=== PATIENT | female | born 1950 | race Caucasian/White ===

== ENCOUNTER 2017-01-11 18:49 | Inpatient (IN) | payer OTHER ==
[~2017-01-11] VITALS: Ht 152.4 cm; Wt 75.8 kg
--- NOTE | ~2017-01-11 | CON ---
[place], [place] REPORT OF CONSULTATION NAME: HEMA DOMINGUEZ UNIT #: [id number] ROOM: 420 DOCTOR: GISELA HURT MD BIRTHDATE: [birth year] DOS: 01/12/2017 GASTROENDOSCOPY REPORT. HISTORY OF PRESENT ILLNESS: This is a 66-year-old patient who presented with multiple medical issues among which in gastrointestinal system; dysphagia, ____ fullness, and difficulty with swallowing apparently solid food as well as bloating, and abdominal pain. The patient was admitted through Emergency Room. A panel of blood work was done. INR was 0.9. Hemoglobin A1c 7.3. Her blood glucose was slightly out of control, 230 plus. Creatinine 1.9. Lactic acid was normal. C-reactive protein normal. Troponin normal. Urinalysis unremarkable. Acute abdominal series, no acute cardiopulmonary pathology seen. CT scan of the abdomen and pelvis, no acute pathology except diverticulosis. White blood cell was 9, H and H of 15 and 43. CBC differential within normal limits again. PAST MEDICAL HISTORY: Associated with coronary artery disease, history of hypertension, diabetes mellitus, hyperlipidemia, trigeminal neuralgia, and COPD. PAST SURGICAL HISTORY: , cardiac catheterization, coronary stenting x 2, cholecystectomy, appendectomy, multiple minor operations, and podiatric surgeries. FAMILY HISTORY: Aunt with colonic carcinoma. SOCIAL HISTORY: She stopped smoking 15 years ago and nonalcohol consumer. ALLERGIES: CODEINE. REVIEW OF SYSTEMS: HEENT: Denies double vision, blurred vision. RESPIRATORY: Denies acute shortness of breath. CARDIOVASCULAR: Denies acute chest pain. DIGESTIVE SYSTEM: Dysphagia to solid food and abdominal pain, nonspecific. NEUROMUSCULOSKELETAL: Benign history. PHYSICAL EXAMINATION: VITAL SIGNS: Obese patient. HEENT: Head normocephalic, nontraumatic. Mouth and buccal mucosa benign. NECK: Supple, no thyromegaly, no cervical lymphadenopathy. Mouth free of aphthae, ulcer or thrush. She is edentulous. NECK: No thyromegaly. CHEST: Symmetric anatomy, equal expansion. Decreased air entry bilaterally on inhalation. No wheeze. HEART: Normal sinus rhythm, no gallop, no murmur. ABDOMEN: Obese, large, soft. No hepato-organomegaly. Bowel sounds present. No pulsatile mass. There is no tenderness acutely. She gestures as a mild tenderness. EXTREMITIES: There is no evidence of cyanosis, no pedal edema, no pulse. No heat to touch. NEUROLOGIC: Alert, oriented to time, place, person. Sensory, motor intact. [place], [place] REPORT OF CONSULTATION NAME: HEMA DOMINGUEZ UNIT #: [id number] ROOM: 420 DOCTOR: GISELA HURT MD BIRTHDATE: [birth year] Cranial nerves 2-12 intact. IMPRESSION: Diverticulosis for abdominal pain off and on, nonspecific etiology. Apparently, she has had an attempted colonoscopy 3 years ago, apparently incomplete colonoscopy; however, as far as upper GI is concerned, dysphagia, ruling out the etiology of dysphagia, most likely is going to be anatomical ruling out hiatal hernia least likely esophageal obstructive pathology. OTHER ADJUNCTIVE DIAGNOSES: Hypertension, hyperlipidemia, diabetes mellitus, and coronary artery disease status post two stent. PLAN AND DISCUSSION: Endoscopic evaluation of upper GI tract along with colonoscopy, Thursday. She requires perhaps 2 days of prep. This is going to be organized. GISELA HURT MD CM:CONSTR:REPORT OF CONSULTATION 1323 01/13/17 0120 interface
--- NOTE | ~2017-01-11 | O ---
[place], [place] OPERATIVE NOTE NAME: HEMA DOMINGUEZ UNIT #: [id number] ROOM: 420 DOCTOR: BLU DONALDSONGISELA BIRTHDATE: [birth year] DOS: 01/14/2017 INDICATIONS: A 66-year-old patient who presented with multiple medical issues among which is gastrointestinal systems, fullness, solid food dysphagia. No active bleeding however. ____ 9 and 15. PROCEDURE: Today's part of investigation is colonoscopy and endoscopy. PREMEDICATION: Versed and Diprivan. SCOPE: Olympus folding colonoscope 10L video. REPORT: After putting the patient in the left lateral position and after application of lubricant to the scope, the scope was introduced. Thereafter, under direct visualization, I advanced through the length of colon without difficulty. Evidence of diverticulosis, left side colon was appreciated. The polypoid flat lesion at the hepatic flexure as much as possible from mucosa was shaved off with a snare polypectomy and the site was tattooed. The scope was negotiated to mid ascending colon. Another polypoid lesion with snare was polypectomized. Site was tattooed again. Base of the cecum explored, appendiceal orifice identified, and ileocecal valve was defined. Scope was gradually withdrawn from ascending, transverse, and descending colon. The patient extubated, tolerated procedure well. IMPRESSION: Two colonic polyps, one in mid ascending, one in the hepatic flexure, status post snare polypectomy, status post polyp tattoo marking with concerns about the pathology, particularly about the hepatic flexure. PLAN AND DISCUSSION: Diverticulosis has been noticed. We are going to ask the patient not to be on anticoagulant. Regular diet is going to be restarted. We are going to proceed with panendoscopy. INDICATIONS: The patient has presented with dysphagia, epigastric distress, anemia, undergoing investigation. PROCEDURE: Today's procedure part of investigation is panendoscopy plus biopsy plus balloon dilation of esophagus. PREMEDICATION: Versed and Diprivan. SCOPE: Olympus forward-viewing gastroscope Q10 video. REPORT: After putting the patient in the left lateral position and after application of lubricant to the scope, the scope was introduced. Thereafter, under direct visualization, I advanced through the length of the esophagus without difficulty. Gastric pouch was entered. Evidence of gastritis was seen. Duodenal bulb, second and third part within normal limits. Antral biopsy obtained for H. pylori was followed by a small hiatal hernia was noticed. At this stage, a balloon was introduced into the gastric pouch to size 20 and orally extracted. Highest resistance in lower and upper esophagus was noticed. [place], [place] OPERATIVE NOTE NAME: HEMA DOMINGUEZ UNIT #: [id number] ROOM: 420 DOCTOR: GISELA HURT MD BIRTHDATE: [birth year] The patient tolerated procedure well. IMPRESSION: Small hiatal hernia, benign esophageal stricture, status post balloon dilation to size 20, mild gastritis. PLAN AND DISCUSSION: Omeprazole 20 mg 1 every day would suffice management of her dyspepsia. We will have to wait to see if she can tolerate regular diet. No anticoagulation for the next 3 days. Supportive management, clinical reassessment. GISELA HURT MD CM:OPRECORD:OPERATIVE NOTE 1139 1200 GISELA HURT MD 01/14/17 1200 interface
[~2017-01-11 18:49] MED LIST: ADVAIR 250/501 EA INH; ALENDRONATE SOD70 M1 PO; ASPIRIN325 MG PO; ATORVASTATIN CA40 M1 PO; CARBAMAZEPINE200 M2 PO; DIAZEPAM5 MG PO; DOXEPIN50 MG PO; DOXYCYCLINE HY100 M5 PO; ENALAPRIL MALEA10 MG PO; GLUCOPHAGE500 M1 PO; HYDR25T PO; KEFLEX 500 MG E2 CAP PO; MACROBID100 M1 PO; MEDROL DOSEPAK4 MG PO; Nystatin Cream15 GM T; PERCOCET 325 MG1 TA2 PO; PERCOCET 325 MG1 TAB PO; ZITHROMAX250 MG PO; ZOFRAN ODT4 MG SL; [UNRECOGNIZED DRUG - SUPPLY]
[2017-01-11 19:03] VITALS: BP 112/72
[2017-01-11 19:21] VITALS: BP 144/82
[2017-01-11 19:43] LABS: ACT PARTIAL THROMBO TIME 20.3 SECONDS (20.8-31.5); INTERNATIONAL NORM RATIO 0.9 (2.0-3.5)
[2017-01-11 19:49] LABS: ALBUMIN 3.7 gm/dl (3.1-4.5); ALKALINE PHOSPHATASE 90 U/L (45-117); BUN 23 mg/dl (7-24); CHLORIDE 103 mmol/L (98-107); CREATININE 1.09 mg/dL (0.55-1.02); LIPASE 128 U/L (73-393); POTASSIUM 4.3 mmol/L (3.5-5.1); SGOT/AST 16 IU/L (3-35); SGPT/ALT 33 U/L (12-78); SODIUM 138 mmol/L (136-145); TOTAL PROTEIN 7.1 gm/dL (6.4-8.2)
[2017-01-11 21:00] VITALS: BP 117/78
[2017-01-11 21:09] LABS: BILIRUBIN NEGATIVE (NEGATIVE); BLOOD NEGATIVE (NEGATIVE); CLARITY CLEAR (CLEAR); COLOR YELLOW (YELLOW); GLUCOSE 1+ (NEGATIVE); KETONE NEGATIVE (NEGATIVE); LEUKO ESTERASE NEGATIVE (NEGATIVE); NITRITE NEGATIVE (NEGATIVE); SPECIFIC GRAVITY 1.025 (1.005-1.030); UROBILINOGEN 0.2 E.U./dl (0.2-1.0)
[2017-01-11 21:22] LABS: HYALINE CAST 0-2; WBC 0-2 wbc/hpf (0-5)
[2017-01-11 22:56] VITALS: BP 120/69
[2017-01-11 23:46] VITALS: BP 116/66
[2017-01-11 23:47] LABS: BASO # 0.1 10*3/uL (0.0-0.1); BASO % 0.9 % (0.0-1.0); EOS # 0.1 10*3/uL (0.0-0.4); EOS % 1.3 % (1.0-4.0); HEMATOCRIT 43.8 % (37.0-47.0); HEMOGLOBIN 15.1 g/dl (12.0-16.0); LYMPH # 1.8 10*3/uL (1.3-4.4); LYMPH % 19.2 % (27.0-41.0); MEAN CELL VOLUME 97.3 fl (81.0-99.0); MEAN CORPUSCULAR HGB 33.6 pg (27.0-31.0); MEAN CORPUSCULAR HGB CONC 34.5 g/dl (33.0-37.0); MEAN PLATELET VOLUME 10.9 fl (9.6-12.3); MONO # 0.6 10*3/uL (0.1-1.0); NEUT # 6.7 10*3/uL (2.3-7.9); NEUT % 72.3 % (47.0-73.0); PLATELET COUNT AUTOMATED 314 10*3/uL (130-400); RED CELL DISTRI WIDTH 12.5 % (0-14.5); WHITE BLOOD COUNT 9.2 10*3/uL (4.8-10.8)
--- NOTE | 2017-01-12 00:04 | NUR ---
VERBAL NOTE GIVEN TO HAND LITER OF FLUIDS ON PT
--- NOTE | 2017-01-12 00:16 | NUR ---
REPORT FROM NANNY CAREGIVER.
[2017-01-12 00:30] VITALS: BP 129/68
--- NOTE | 2017-01-12 00:30 | NUR ---
A 66, admitted to , under the services of RAYMOND Lazaro DO with a diagnosis of ABDOMINAL PAIN. Chief complaint is ABD PAIN. Patient arrived via stretcher from ER. Monitor applied. Initial assessment completed. Vital signs taken and recorded. RAYMOND LAZARO DO notified of admission to the unit. Orders received. See assessment for past medical history, medications and allergies. Patient and/or family oriented to unit. [facility] visitation policy reviewed. Clothing/patient valuable form completed. DARIANA BOLANOS
[2017-01-12 00:45] VITALS: BP 129/68
[2017-01-12] MEDS ORDERED: PERCOCET 10-321 EACH PO (00:58)
[2017-01-12] MEDS ORDERED: SUDOGEST30 MG PO (01:00)
[2017-01-12] MEDS ORDERED: METFORMIN1000 MG PO (01:11)
[2017-01-12] MEDS ORDERED: VITAMIN D-32000 UNIT PO (01:14)
[2017-01-12] MEDS ORDERED: ROPINIROLE HYDRO1 MG PO (01:15)
--- NOTE | 2017-01-12 01:16 | NUR ---
MED REC UP TO DATE WITH LIST FROM PATIENT. LIST PUT ON CHART
--- NOTE | 2017-01-12 01:23 | NUR ---
DR DIAZ AWARE OF PATIENT'S MED REC BEING UP TO DATE AND PATIENT C/O PAIN. STATES HE WILL PUT ORDERS IN.
--- NOTE | 2017-01-12 03:55 | NUR ---
PATIENT MEDICATED WITH PRN DILAUDID FOR C/O ABD PAIN RATED 8/10 ON A 0/10 PAIN SCALE
[2017-01-12 06:57] LABS: BASO % 0.8 % (0.0-1.0); EOS # 0.2 10*3/uL (0.0-0.4); EOS % 3.5 % (1.0-4.0); HEMATOCRIT 38.2 % (37.0-47.0); LYMPH # 1.9 10*3/uL (1.3-4.4); LYMPH % 36.5 % (27.0-41.0); MEAN CELL VOLUME 97.9 fl (81.0-99.0); MEAN CORPUSCULAR HGB 32.6 pg (27.0-31.0); MEAN CORPUSCULAR HGB CONC 33.2 g/dl (33.0-37.0); MEAN PLATELET VOLUME 10.6 fl (9.6-12.3); MONO # 0.3 10*3/uL (0.1-1.0); NEUT # 2.8 10*3/uL (2.3-7.9); NEUT % 52.8 % (47.0-73.0); PLATELET COUNT AUTOMATED 253 10*3/uL (130-400); RED CELL DISTRI WIDTH 12.5 % (0-14.5); WHITE BLOOD COUNT 5.2 10*3/uL (4.8-10.8)
[2017-01-12 06:59] LABS: HEMOGLOBIN 12.7 g/dl (12.0-16.0)
[2017-01-12 07:18] LABS: BUN 17 mg/dl (7-24); CHLORIDE 108 mmol/L (98-107); CHOLESTEROL 154 mg/dL (<200); CREATININE 0.57 mg/dL (0.55-1.02); HDL CHOLESTEROL 50 mg/dl (40-60); LDL CHOLESTEROL 71 mg/dL (9-159); POTASSIUM 3.9 mmol/L (3.5-5.1); SODIUM 141 mmol/L (136-145); TRIGLYCERIDES 167 mg/dl (<150); VLDL CHOLESTEROL 33 mg/dL (6-40)
[2017-01-12 07:27] LABS: ACT PARTIAL THROMBO TIME 23.5 SECONDS (20.8-31.5)
--- NOTE | 2017-01-12 07:42 | NUR ---
LAB CALLED WITH CRITICAL LEVEL OF CALCIUM OF 6.9. DR DIAZ NOTIFIED.
[2017-01-12 07:56] LABS: VITAMIN D, 25-HYDROXY 41.6 ng/mL (30-100)
[2017-01-12 08:00] VITALS: BP 112/68
--- NOTE | 2017-01-12 08:01 | NUR ---
MEDICATED IV DILAUDID FOR C/O ABDOMINAL PAIN. RATES PAIN 8/10. WILL CONTINUE TO MONITOR.
--- NOTE | 2017-01-12 09:00 | NUR ---
STATES DILAUDID EFFECTIVE.
--- NOTE | 2017-01-12 11:17 | NUR ---
Received SNF consultation for this patient. In to discuss with her, yogesh Hayward at bedside. Patient very adamant about no SNF, patients daughter stated she is not working right now because she doesn't work in the winter and she cares for her. Asked if they would like VNA and both stated not right now. Daughter and patient stated she will be fine going home, refusing SNF and VNA.
--- NOTE | 2017-01-12 11:51 | NUR ---
PHYSICAL THERAPY PAtient evaluated on 4, full evaluation to follow. PAtient (I) with mobility and gait. D/c PT after evaluation- patient agrees. PAtient is low complexity via chart review, tests and evaluation: 55029. Thank you for this referral. Xiomara Nieves,PT
--- NOTE | 2017-01-12 11:53 | NUR ---
MEDICATED IV DILAUDID FOR C/O ABDOMINAL PAIN. RATES PAIN 8/10.
[2017-01-12 12:00] VITALS: BP 120/76
--- NOTE | 2017-01-12 12:05 | NUR ---
DR HURT NOTIFED OF CONSULT. STATES HE WILL SEE PT.
--- NOTE | 2017-01-12 12:07 | NUR ---
Occupational Therapy evaluation completed this date on 4 with full eval to follow. Precautions include right hearing aide, [place], low complexity level 67747. Recommend use of ww in the hospital especially while LLE aircast not in place and return home with daughter to assist as needed. No further OT indicated at this time. Patient in agreement with this plan. Thank you for this referral. Carrie Fiedls OTR/l
--- NOTE | 2017-01-12 12:31 | NUR ---
SPEECH PATHOLOGY Orders received and chart review completed. Patient is currently NPO for medical procedure today therefore full clinical assessment was unable to be completed. Clinician spoke with patient who reported that she has been experiencing a feeling of food sticking in her sternal area. She reported that at time she throws it back up, then chokes, but stated that she does not seem to have any difficulty when initially swallowing the food. Dr. Rajan has been consulted and is following this patient. Will check back at a later time in order to complete assessment to r/o aspiration and provide diet recommendations. Thank you for this referral. NEY WALLACE MSCCC-BEE RAISER
--- NOTE | 2017-01-12 13:00 | NUR ---
NO FURTHER C/O OFFERED.
--- NOTE | 2017-01-12 15:50 | NUR ---
MEDICATED IV DILAUDID FOR C/O PAIN. RATES PAIN 8/10
[2017-01-12 16:00] VITALS: BP 118/76
--- NOTE | 2017-01-12 16:58 | NUR ---
PT C/O BEING EXCORIATED UNDER BREAST AND ABDOMINAL FOLDS. AREAS RED, NO OPEN AREAS. DR SEE NOTIFIED, STATES SHE WILL PUT ORDERS IN.
--- NOTE | 2017-01-12 18:20 | NUR ---
NO FURTHER C/O OFFERED.
[2017-01-12 20:00] VITALS: BP 113/67
--- NOTE | 2017-01-12 20:11 | NUR ---
DR MICHELLE AWARE OF PATIENT REQUESTING NYSTATIN CREAM BE CHANGED TO POWDER
--- NOTE | 2017-01-12 21:20 | NUR ---
PATIENT MEDICATED WITH PRN DILAUDID FOR C/O ABD PAIN RATED 8/10 ON A 0/10 PAIN SCALE
--- NOTE | 2017-01-12 22:08 | NUR ---
MEDICATED EFFECTIVE PER PATIENT
[2017-01-13] VITALS: BP 121/62
--- NOTE | 2017-01-13 01:26 | NUR ---
24 HR chart check completed.
--- NOTE | 2017-01-13 03:59 | NUR ---
PATIENT RESTING IN BED WITH NO S/S OF DISTRESS. RESPS EASY AND REGULAR. BED IN LOWEST POSITION, CALL LIGHT IN REACH
[2017-01-13 06:44] LABS: EOS # 0.1 10*3/uL (0.0-0.4); EOS % 4.1 % (1.0-4.0); HEMATOCRIT 33.9 % (37.0-47.0); HEMOGLOBIN 11.3 g/dl (12.0-16.0); LYMPH % 35.6 % (27.0-41.0); MEAN CELL VOLUME 96.9 fl (81.0-99.0); MEAN CORPUSCULAR HGB 32.3 pg (27.0-31.0); MEAN CORPUSCULAR HGB CONC 33.3 g/dl (33.0-37.0); MEAN PLATELET VOLUME 10.5 fl (9.6-12.3); MONO # 0.2 10*3/uL (0.1-1.0); MONO % 5.8 % (3.0-9.0); NEUT # 1.6 10*3/uL (2.3-7.9); NEUT % 53.2 % (47.0-73.0); PLATELET COUNT AUTOMATED 193 10*3/uL (130-400); RED CELL DISTRI WIDTH 12.4 % (0-14.5); WHITE BLOOD COUNT 2.9 10*3/uL (4.8-10.8)
[2017-01-13 07:15] LABS: BUN 9 mg/dl (7-24); CHLORIDE 109 mmol/L (98-107); SODIUM 142 mmol/L (136-145)
--- NOTE | 2017-01-13 07:50 | NUR ---
DILAUDID GIVEN FOR C/O RT SIDE PIN. RATES 8/10 ON PAIN SCALE. WILL MONITOR.
--- NOTE | 2017-01-13 07:55 | NUR ---
DILUADID AND PT NOT SCANED AT LEONIE TIME. DILAUDID GIVEN TO PT AT 0750, AND SYRINGE PLACED IN STERICYLE. PHARMACY NOTIFIED.
[2017-01-13 08:00] VITALS: BP 128/72
--- NOTE | 2017-01-13 09:00 | NUR ---
DILAUDID EFFECTIVE PER PT.
--- NOTE | 2017-01-13 09:03 | NUR ---
SPEECH PATHOLOGY Patient was seen for a brief clinical swallowing evaluation due to dx of dysphagia, abdominal pain and choking. Patient is currently ordered a clear liquid diet as she is scheduled for upper GI and colonoscopy tomorrow. Patient reported that has been experiencing a feeling that solid foods are sticking in her sternal area, which she eventually has to bring back up. Patient stated that she felt she has no difficulty with swallowing. She was only able to be assessed with liquid, which she tolerated with no overt difficulty. Will monitor this patient after medical procedures are completed in order to assess when she is cleared for diet upgrade, in order to determine safety with highest level diet. Refer to report in [facility] for further information. Thank you for this referral. NEY WALLACE MSCCC-ASBESTOS COVERER
--- NOTE | 2017-01-13 09:25 | NUR ---
PATIENT WAS LAYING IN BED. RESTING QUIETLY WITH HER DAUGHTER BY HER SIDE. DENISE FOURNIER [facility]
[2017-01-13 12:00] VITALS: BP 130/72
--- NOTE | 2017-01-13 12:54 | NUR ---
DOCTOR IN TO VISIT, PT WILL BE NPO AFTER MIDNIGHT FOR COLONOSCOPY IN AM DENISE FOURNIER [facility]
--- NOTE | 2017-01-13 13:51 | NUR ---
PATIENT LYING IN BED. FAMILY VISITING WITH HER. DENISE FOURNIER DAYAN
[2017-01-13 16:00] VITALS: BP 134/94
[2017-01-13 20:00] VITALS: BP 139/88
--- NOTE | 2017-01-13 20:09 | NUR ---
1925 UP IN BR. FREQUENT BM'S FROM COLO PREP. IV FLUIDS CONT. ALERT AND PLEASANT. DILAUDID 1MG IV FOR C/O'S ABD PAIN. RATES PAIN A "10". WILL MONITOR. 2004 RELIEF OBTAINED FROM EARLIER PAIN MED. REMAINS IN BR.
--- NOTE | 2017-01-13 22:04 | NUR ---
UP TO BR FREQUENTLY. NO DISTRESS NOTED. CONDITION GUARDED.
[2017-01-14] VITALS (11 sets, daily range): BP systolic 114–148; BP diastolic 66–108
[2017-01-14 06:31] LABS: BASO # 0.1 10*3/uL (0.0-0.1); BASO % 1.2 % (0.0-1.0); EOS # 0.3 10*3/uL (0.0-0.4); EOS % 6.5 % (1.0-4.0); HEMATOCRIT 35.1 % (37.0-47.0); HEMOGLOBIN 11.9 g/dl (12.0-16.0); LYMPH # 1.3 10*3/uL (1.3-4.4); LYMPH % 31.3 % (27.0-41.0); MEAN CELL VOLUME 96.4 fl (81.0-99.0); MEAN CORPUSCULAR HGB 32.7 pg (27.0-31.0); MEAN CORPUSCULAR HGB CONC 33.9 g/dl (33.0-37.0); MEAN PLATELET VOLUME 9.7 fl (9.6-12.3); MONO # 0.3 10*3/uL (0.1-1.0); MONO % 7.2 % (3.0-9.0); NEUT # 2.2 10*3/uL (2.3-7.9); NEUT % 53.6 % (47.0-73.0); PLATELET COUNT AUTOMATED 194 10*3/uL (130-400); RED BLOOD COUNT 3.64 10*6/uL (4.10-5.10); RED CELL DISTRI WIDTH 12.4 % (0-14.5)
[2017-01-14 07:01] LABS: ALBUMIN 2.9 gm/dl (3.1-4.5); ALKALINE PHOSPHATASE 113 U/L (45-117); BUN 6 mg/dl (7-24); CHLORIDE 107 mmol/L (98-107); CREATININE 0.51 mg/dL (0.55-1.02); POTASSIUM 3.6 mmol/L (3.5-5.1); SGOT/AST 222 IU/L (3-35); SGPT/ALT 584 U/L (12-78); SODIUM 142 mmol/L (136-145); TOTAL PROTEIN 5.7 gm/dL (6.4-8.2)
--- NOTE | 2017-01-14 07:55 | NUR ---
PATIENT RESTING IN BED WITH DAUGHTER AT BEDSIDE. PATIENT REQUESTED PRN MEDICATION. 1 MG DILAUDID WAS GIVEN WILL REASSESS FOR EFFECTIVENESS. SEE SHIFT ASSESSMENT
--- NOTE | 2017-01-14 08:00 | NUR ---
BP ELEVATED AT 138/108 BUT PT IS CRYING AND UPSET ABOUT PROCEDURE AND ENEMA, PT STATES THAT SHE ALSO HAS A FANILY HISTORY OF COLON CANCER AND IS WORRIED ABOUT IT, SPENT TIME WITH PT AND ALLOWED HER TO RELAX, PT ALSO IN PAIN AT PRESENT AND WAS MEDICATED BY NURSE, NURSE SHIMA FOURNIER [facility]
--- NOTE | 2017-01-14 08:20 | NUR ---
BP RECHECKED AND WAS 148/88 AT THIS TIME MANUALLY, PT REMAINS UPSET BUT IS A LITTLE MORE RELAXED DENISE MELTONCC
--- NOTE | 2017-01-14 08:33 | NUR ---
PATIENT IS LYING COMFORTABLY IN BED, WAITNG TO GO DOWN FOR HER PROCEDURE. OLEGARIO CAMERON [facility]
--- NOTE | 2017-01-14 08:37 | NUR ---
TAP WATER ENEMA GIVEN UNTIL CLEAR, PT TOLERATED WELL DENISE TIRADONRCC
--- NOTE | 2017-01-14 08:50 | NUR ---
TO SURGERY FOR PROCEDURE ACCOMPANIED BY STUDENT AND OR STAFF DENISE MELTONCC
--- NOTE | 2017-01-14 12:34 | NUR ---
SPEECH PATHOLOGY Patient unavailable for treatment as she was out of room for surgery. Will attempt again at a later time. NEY WALLACE MSCCC-RATOPRINTER
--- NOTE | 2017-01-14 12:54 | NUR ---
BACK FROM SURGERY, CONDITION STABLE, NO CHANGE FROM AM ASSESSMENT, FAMILY AT THE BEDSIDE DENISE MONTES
--- NOTE | 2017-01-14 13:52 | NUR ---
UP TO BATHROOM, TOELRATED WELL DENISE FOURNIER SPNRCC
--- NOTE | 2017-01-14 14:52 | NUR ---
SPEECH PATHOLOGY Patient was seen for treatment this pm. She had returned from EGD/colonoscopy and reported that she underwent esophageal dilation as well. She is now ordered a soft diet and was observed with various soft items and thin liquids. Some encouragement was required as well as education as patient admitted feeling fearful that foods will stick. During meal she had no complaints and did not experience a feeling of globus with any food item. She tolerated foods and liquids well. Safe swallow strategies were implemented. As she is tolerating upgraded diet with no observed difficulties, it is recommended she remain on present diet. No follow up therapy is warranted at this time. Results and shai. were shared with patient and family members and they verbalized understanding. Thank you for this referral. NEY WALLACE MSCCC-PROGRAM HOST
--- NOTE | 2017-01-14 19:30 | NUR ---
IN TO SEE PT AT THIS TIME, ALERT AND PLEASANT. NO S/S OF DISTRESS. RESPIRATIONS EASY AND UNLABORED. ASSESSMENT COMPLETE, PT DENIES ANY PAIN UPON URINATION. LUNG SOUNDS DIMINISHED, ACTIVE BOWEL SOUNDS X 4 QUADRANTS. HEART RATE NSR PER CM. EXPLAINED PLAN OF CARE TO PT FOR THE SHIFT.
--- NOTE | 2017-01-14 22:00 | NUR ---
HS MEDICATION GIVEN TO PT AT THIS TIME. TAKEN WITH EASE. HS BLOOD SUGAR OBTAINED AND COVERAGE GIVEN PER ORDER. PT TOLERATED WELL. RESPIRATIONS EASY AND UNLABORED. NO S/S OF DISTRESS AT THIS TIME. PT REFUSES NYSTATIN CREAM AT THIS TIME AND STATES THAT SHE DOES NOT NEED IT ANYMORE.
[2017-01-15] VITALS: BP 118/65
--- NOTE | 2017-01-15 02:00 | NUR ---
IN TO CHECK ON PT AT THIS TIME, RESPIRATIONS EASY AND UNLABORED. IV FLUIDS RUNNING PER PHYSICIAN ORDER. IV SITE PATENT, DRESSING DRY AND IN TACT. NO ABNORAMLITIES NOTED.
[2017-01-15 05:55] LABS: HEMATOCRIT 32.2 % (37.0-47.0)
--- NOTE | 2017-01-15 06:00 | NUR ---
AM MEDICATIONS TAKEN WITH EASE. NO NEW ABNORMALITIES NOTED. RESPIRATIONS EASY AND UNLABORED. BLOOD SUGAR OBTAINED AND NO COVERAGE NEEDED PER SLIDING SCALE. PT REFUSES NYSTATIN CRAEM THIS MORNING AND STATES THAT SHE DOES NOT NEED IT ANYMORE. ATTEMPTS X 3 MADE, INEFFECTIVE.
[2017-01-15 08:00] VITALS: BP 128/88
--- NOTE | 2017-01-15 08:33 | NUR ---
PATIENT WAS SLEEPING QUIETLY IN BED. DAUGHTER SLEEPING NEXT TO HER AT TIME OF ASSESSMENT. PATIENT GOING TO GET CLEANED UP AFTER BREAKFAST. DENISE MONTES
--- NOTE | 2017-01-15 09:00 | NUR ---
case management visits with patient, patient will return home when medically stable and denies any home needs
--- NOTE | 2017-01-15 09:46 | NUR ---
MEDICATED 2 TYLENOL FOR C/O HEADACHE.
--- NOTE | 2017-01-15 10:05 | NUR ---
DOCTOR IN TO VISIT, IV FLUIDS D/C'D DENISE FOURNIER SPNRCC
--- NOTE | 2017-01-15 10:22 | NUR ---
ONE TIME DOSE OF NORCO GIVEN FOR C/O HEADACHE.
[2017-01-15] MEDS ORDERED: GOOD NEIGHBOR L10 MG PO (10:31)
[2017-01-15] MEDS ORDERED: OMEPRAZOLE20 M2 PO (10:33)
--- NOTE | 2017-01-15 10:49 | NUR ---
PATIENT ATE 100% OF HER BREAKFAST AND 480CC OF FLUIDS. DENISE FOURNIER SPCC
[2017-01-15 12:00] VITALS: BP 129/63
[2017-01-15 12:25] LABS: HEMATOCRIT 32.8 % (37.0-47.0); HEMOGLOBIN 11.3 g/dl (12.0-16.0)
--- NOTE | 2017-01-15 12:55 | NUR ---
Discharge instructions reviewed with patient/family. Patient receptive and verbalizes understanding. Follow-up care arranged. Written instructions given to patient/family, IV site D/C'd site asymptomatic, monitor D/C'd DENISE MONTES
--- NOTE | 2017-01-15 13:25 | NUR ---
PT ATE 100% OF MEAL, DAUGHTER AT THE BEDSIDE, DISCHARGED TO CAR VIA W/C IN CARE OF DAUGHTER, STUDENT ACCOMPANIED PT TO CAR, CONDITION STABLE DENISE FOURNIER SPNRCC
--- NOTE | 2017-01-15 13:25 | NUR ---
DISCHARGED TO HOME IN CARE OF DAUGHTER. REFUSED FLU VACCINE.
== END 2017-01-15 13:25 | disposition home or self-care (01) | DRG 392 ==
LOC: ED 18:49 → EDHOLD 23:52 → 4E 23:52
PROVIDERS: Emergency Medicine Emergency Medical Services; Hospitalist; Internal Medicine; Internal Medicine Gastroenterology; Registered Nurse; ADMIT Internal Medicine
PROC: 0DBK8ZZ Excision of Ascending Colon, Via Natural or Artificial Opening Endoscopic (ICD-10-PCS; principal; 2017-01-14)
PROC: 0DBL8ZZ Excision of Transverse Colon, Via Natural or Artificial Opening Endoscopic (ICD-10-PCS; 2017-01-14)
PROC: 0DB78ZX Excision of Stomach, Pylorus, Via Natural or Artificial Opening Endoscopic, Diagnostic (ICD-10-PCS; 2017-01-14)
PROC: 0D758ZZ Dilation of Esophagus, Via Natural or Artificial Opening Endoscopic (ICD-10-PCS; 2017-01-14)
DX: K57.30 Diverticulosis of large intestine without perforation or abscess without bleeding (principal); E11.65 Type 2 diabetes mellitus with hyperglycemia; K22.2 Esophageal obstruction; E83.51 Hypocalcemia; R13.11 Dysphagia, oral phase; K29.70 Gastritis, unspecified, without bleeding; D64.9 Anemia, unspecified; I10 Essential (primary) hypertension; E78.1 Pure hyperglyceridemia; F32.9 Major depressive disorder, single episode, unspecified; E78.2 Mixed hyperlipidemia; F41.9 Anxiety disorder, unspecified; M19.90 Unspecified osteoarthritis, unspecified site; G50.0 Trigeminal neuralgia; J44.9 Chronic obstructive pulmonary disease, unspecified; K44.9 Diaphragmatic hernia without obstruction or gangrene; K63.5 Polyp of colon; E66.9 Obesity, unspecified; I25.10 Atherosclerotic heart disease of native coronary artery without angina pectoris; Z98.61 Coronary angioplasty status; Z86.73 Personal history of transient ischemic attack (TIA), and cerebral infarction without residual deficits; Z90.49 Acquired absence of other specified parts of digestive tract; Z85.038 Personal history of other malignant neoplasm of large intestine; Z88.6 Allergy status to analgesic agent; Z79.899 Other long term (current) drug therapy; Z79.82 Long term (current) use of aspirin; Z87.01 Personal history of pneumonia (recurrent); Z85.828 Personal history of other malignant neoplasm of skin; Z86.718 Personal history of other venous thrombosis and embolism; Z82.49 Family history of ischemic heart disease and other diseases of the circulatory system; Z83.3 Family history of diabetes mellitus; Z80.1 Family history of malignant neoplasm of trachea, bronchus and lung; Z85.41 Personal history of malignant neoplasm of cervix uteri; Z98.891 History of uterine scar from previous surgery; Z80.0 Family history of malignant neoplasm of digestive organs; Z87.891 Personal history of nicotine dependence; Z68.32 Body mass index [BMI] 32.0-32.9, adult

== ENCOUNTER 2023-08-08 12:07 | Emergency (ER) | payer OTHER ==
[~2023-08-08] VITALS: Ht 152.4 cm; Wt 53.1 kg
[~2023-08-08 12:07] MED LIST changes: +AMLODIPINE BESYL5 MG PO; +ASPIRIN ADULT L81 M1 PO; +DOXEPIN HCL150 MG PO; +ESCITALOPRAM OXA5 MG PO; +FLUTICASONE P10.6 G1 INH; +GOOD NEIGHBOR L10 MG PO; +LIPITOR40 MG PO; +LISINOPRIL40 MG PO; +MELOXICAM7.5 MG PO; +METFORMIN1000 MG PO; +METHOCARBAMOL500 M1 PO; +OMEPRAZOLE20 M2 PO; +ONE DAILY MULT PO; +PERCOCET 10-321 EACH PO; +PREDNISONE10 MG PO; +PREGABALIN100 MG PO; +PROBIOTIC1 EAC1 PO; +ROPINIROLE HYDRO1 MG PO; +SENNA-PLUS TAB1 EACH PO; +SUDOGEST30 MG PO; +VENTOLIN 02.5 MG/3 M INH; +VITAMIN D-32000 UNIT PO
[2023-08-08 12:46] LABS: BASO # 0.1 10*3/uL (0.0-0.1); BASO % 0.6 % (0.0-1.0); EOS # 0.2 10*3/uL (0.0-0.4); EOS % 2.2 % (1.0-4.0); HEMATOCRIT 41.3 % (37.0-47.0); LYMPH # 1.6 10*3/uL (1.3-4.4); LYMPH % 18.1 % (27.0-41.0); MEAN CELL VOLUME 98.1 fl (81.0-99.0); MEAN CORPUSCULAR HGB 31.1 pg (27.0-31.0); MEAN CORPUSCULAR HGB CONC 31.7 g/dl (33.0-37.0); MEAN PLATELET VOLUME 9.8 fl (9.6-12.3); MONO # 0.4 10*3/uL (0.1-1.0); MONO % 4.3 % (3.0-9.0); NEUT # 6.7 10*3/uL (2.3-7.9); NEUT % 74.6 % (47.0-73.0); PLATELET COUNT AUTOMATED 336 10*3/uL (130-400); RED BLOOD COUNT 4.21 10*6/uL (4.10-5.10); RED CELL DISTRI WIDTH 13.1 % (0-14.5); WHITE BLOOD COUNT 8.9 10*3/uL (4.8-10.8)
[2023-08-08 13:05] LABS: ALKALINE PHOSPHATASE 105 U/L (46-116); BUN 15 mg/dl (9-23); CHLORIDE 102 mmol/L (98-107); LIPASE 30 U/L (12-53); POTASSIUM 3.4 mmol/L (3.4-5.1); SGPT/ALT 13 U/L (5-49); TOTAL PROTEIN 6.6 gm/dL (6.0-8.0)
[2023-08-08 13:18] LABS: BILIRUBIN Negative (Negative); BLOOD Negative (Negative); CLARITY Clear (Clear); COLOR Yellow (Yellow); GLUCOSE 3+ (Negative); KETONE Trace (Negative); LEUKO ESTERASE Negative (Negative); NITRITE Negative (Negative); PH 5.5 (4.5-8.0); SPECIFIC GRAVITY >= 1.030 (1.001-1.030); UROBILINOGEN 0.2 E.U./dl (0.0-1.0)
[2023-08-08 13:48] LABS: EPITHELIAL CELLS 0-2; MUCOUS 1+; RBC 0-2 rbc/hpf (0-2); WBC 0-2 wbc/hpf (0-5)
[2023-08-08] MEDS ORDERED: ACETAMINOPHEN 325 MG TAB PO ONE (14:25)
[2023-08-08] MEDS ORDERED: CIPRO500 MG PO (15:40)
[2023-08-08] MEDS ORDERED: METRONIDAZOLE500 M1 PO (15:40)
== END 2023-08-08 15:52 | disposition home or self-care (01) ==
LOC: ED 12:07
PROVIDERS: Emergency Medicine
DX: K59.00 Constipation, unspecified (principal); K57.32 Diverticulitis of large intestine without perforation or abscess without bleeding; I10 Essential (primary) hypertension; E11.9 Type 2 diabetes mellitus without complications; J44.9 Chronic obstructive pulmonary disease, unspecified; F32.A Depression, unspecified; E78.5 Hyperlipidemia, unspecified; I25.10 Atherosclerotic heart disease of native coronary artery without angina pectoris; F41.9 Anxiety disorder, unspecified; Z86.73 Personal history of transient ischemic attack (TIA), and cerebral infarction without residual deficits; Z88.5 Allergy status to narcotic agent; Z90.49 Acquired absence of other specified parts of digestive tract; Z98.890 Other specified postprocedural states; Z95.5 Presence of coronary angioplasty implant and graft

== ENCOUNTER 2023-09-28 14:26 | Inpatient (IN) | payer OTHER ==
[~2023-09-28] VITALS: Ht 152.4 cm; Wt 51.0 kg
[~2023-09-28 14:26] MED LIST changes: +CIPRO500 MG PO; +METRONIDAZOLE500 M1 PO
[2023-09-28 19:29] VITALS: BP 124/89
[2023-09-28 20:44] VITALS: BP 144/84
[2023-09-28] MEDS ORDERED: MG-AL HYDROXIDE/SIMETICONE 30 ML UDC PO PRN (20:50)
[2023-09-28] MEDS ORDERED: Magnesium Hydroxide 30 ML UDC PO PRN (20:50)
[2023-09-28] MEDS ORDERED: ACETAMINOPHEN 325 MG TAB PO PRN (20:50)
[2023-09-28] MEDS ORDERED: Menthol/Zinc Oxide 4 GM THIN T SCH (21:00)
[2023-09-28 21:09] LABS: BILIRUBIN Negative (Negative); BLOOD Negative (Negative); CLARITY Clear (Clear); COLOR Yellow (Yellow); GLUCOSE Negative (Negative); KETONE Negative (Negative); LEUKO ESTERASE Negative (Negative); NITRITE Negative (Negative); PH 7.5 (4.5-8.0); UROBILINOGEN 0.2 E.U./dl (0.0-1.0)
[2023-09-28] MEDS ORDERED: Ziprasidone Hydrochloride 20 MG CAP PO PRN (21:15)
[2023-09-28] MEDS ORDERED: LORazepam 1 MG TAB PO PRN (21:15)
[2023-09-28] MEDS ORDERED: LORazepam 2 MG/ML VIAL IM PRN (21:15)
[2023-09-28] MEDS ORDERED: Water, Sterile 10 ML VIAL IM PRN (21:15)
[2023-09-28] MEDS ORDERED: SERTRALINE HYD100 MG PO (21:18)
[2023-09-28 21:19] LABS: MUCOUS 1+; RBC 0-2 rbc/hpf (0-2)
[2023-09-28] MEDS ORDERED: QUETIAPINE FUM100 M1 PO (21:19)
[2023-09-28] MEDS ORDERED: Menthol/Zinc Oxide 4 GM THIN T PRN (21:24)
[2023-09-28] MEDS ORDERED: METHOCARBAMOL 500 MG TAB PO PRN (23:50)
[2023-09-29] MEDS ORDERED: carBAMazepine 200 MG TAB PO SCH (06:00)
[2023-09-29] MEDS ORDERED: OMEPRAZOLE 20 MG CAP PO SCH (06:00)
[2023-09-29 06:32] LABS: BASO % 0.9 % (0.0-1.0); EOS # 0.3 10*3/uL (0.0-0.4); EOS % 6.9 % (1.0-4.0); HEMATOCRIT 36.2 % (37.0-47.0); LYMPH # 1.5 10*3/uL (1.3-4.4); LYMPH % 31.2 % (27.0-41.0); MEAN CELL VOLUME 92.8 fl (81.0-99.0); MEAN CORPUSCULAR HGB CONC 33.4 g/dl (33.0-37.0); MEAN PLATELET VOLUME 9.7 fl (9.6-12.3); MONO # 0.3 10*3/uL (0.1-1.0); MONO % 7.3 % (3.0-9.0); NEUT # 2.5 10*3/uL (2.3-7.9); NEUT % 53.5 % (47.0-73.0); PLATELET COUNT AUTOMATED 262 10*3/uL (130-400); RED CELL DISTRI WIDTH 13.3 % (0-14.5); WHITE BLOOD COUNT 4.7 10*3/uL (4.8-10.8)
[2023-09-29 06:47] LABS: ALKALINE PHOSPHATASE 72 U/L (46-116); BUN 11 mg/dl (9-23); CHLORIDE 107 mmol/L (98-107); CHOLESTEROL 177 mg/dL (<200); LDL CHOLESTEROL 102 mg/dL (9-159); POTASSIUM 3.8 mmol/L (3.4-5.1); SGPT/ALT 33 U/L (5-49); TOTAL PROTEIN 5.9 gm/dL (6.0-8.0); TRIGLYCERIDES 166 mg/dl (<150)
[2023-09-29] MEDS ORDERED: BUDESONIDE 0.5 MG AMP NEB SCH (06:56)
[2023-09-29 07:04] LABS: B-hCG (QUALITATIVE) BORDERLINE (NEGATIVE)
[2023-09-29 07:44] LABS: VITAMIN D, 25-HYDROXY 40.9 ng/mL (30-100)
[2023-09-29 08:00] VITALS: BP 131/74
[2023-09-29] MEDS ORDERED: Nicotine 21 MG PATCH T SCH (09:00)
[2023-09-29] MEDS ORDERED: clonAZEPAM 0.5 MG TAB PO SCH (09:00)
[2023-09-29] MEDS ORDERED: PREGABALIN 50 MG CAP PO SCH (09:00)
[2023-09-29] MEDS ORDERED: VORTIOXETINE HYDROBROMIDE 10 MG TAB PO SCH (09:00)
[2023-09-29] MEDS ORDERED: LISINOPRIL 40 MG TAB PO SCH (10:00)
[2023-09-29] MEDS ORDERED: amLODIPine besylate 5 MG TAB PO SCH (10:00)
[2023-09-29] MEDS ORDERED: ASPIRIN, CHEWABLE 81 MG TAB PO SCH (10:00)
[2023-09-29] MEDS ORDERED: Meloxicam 15 MG TAB PO SCH (10:00)
[2023-09-29 20:00] VITALS: BP 94/56
[2023-09-29] MEDS ORDERED: clonAZEPAM 1 MG TAB PO SCH (21:00)
[2023-09-29] MEDS ORDERED: ATORVASTATIN CALCIUM 40 MG TABLET PO SCH (22:00)
[2023-09-29] MEDS ORDERED: NYSTATIN 15 GM BOT T SCH (22:00)
[2023-09-30 07:59] VITALS: BP 116/63
[2023-09-30] MEDS ORDERED: VORTIOXETINE HYDROBROMIDE 20 MG TAB PO SCH (09:00)
[2023-09-30 20:00] VITALS: BP 104/56
[2023-10-01 07:52] VITALS: BP 114/63
[2023-10-01] MEDS ORDERED: clonAZEPAM 0.5 MG TAB PO SCH (13:00)
[2023-10-01 20:00] VITALS: BP 112/72
[2023-10-02 07:35] VITALS: BP 114/59
[2023-10-02 20:00] VITALS: BP 119/70
[2023-10-03 08:00] VITALS: BP 135/68
[2023-10-03 20:00] VITALS: BP 142/52
[2023-10-04 08:02] VITALS: BP 141/65
[2023-10-04 20:00] VITALS: BP 115/57
[2023-10-05 07:54] VITALS: BP 139/72
[2023-10-05 19:16] VITALS: BP 133/68
[2023-10-06 07:55] VITALS: BP 138/76
[2023-10-06] MEDS ORDERED: clonAZEPAM 1 MG TAB PO SCH (13:00)
[2023-10-06 20:00] VITALS: BP 148/72
[2023-10-07 07:52] VITALS: BP 148/66
[2023-10-07] MEDS ORDERED: IBUPROFEN 800 MG TAB PO ONE (15:20)
[2023-10-07 20:00] VITALS: BP 124/64
[2023-10-08 08:00] VITALS: BP 141/65
[2023-10-08 20:00] VITALS: BP 111/58
[2023-10-09 08:43] VITALS: BP 148/65
[2023-10-09 10:20] LABS: BASO % 0.6 % (0.0-1.0); EOS # 0.5 10*3/uL (0.0-0.4); EOS % 6.8 % (1.0-4.0); HEMATOCRIT 37.7 % (37.0-47.0); LYMPH # 1.2 10*3/uL (1.3-4.4); MEAN CELL VOLUME 98.4 fl (81.0-99.0); MEAN CORPUSCULAR HGB 31.1 pg (27.0-31.0); MEAN CORPUSCULAR HGB CONC 31.6 g/dl (33.0-37.0); MEAN PLATELET VOLUME 9.4 fl (9.6-12.3); MONO # 0.2 10*3/uL (0.1-1.0); MONO % 3.4 % (3.0-9.0); NEUT # 5.1 10*3/uL (2.3-7.9); NEUT % 71.6 % (47.0-73.0); PLATELET COUNT AUTOMATED 354 10*3/uL (130-400); RED BLOOD COUNT 3.83 10*6/uL (4.10-5.10); RED CELL DISTRI WIDTH 13.6 % (0-14.5); WHITE BLOOD COUNT 7.1 10*3/uL (4.8-10.8)
[2023-10-09 10:45] LABS: ALKALINE PHOSPHATASE 78 U/L (46-116); BUN 11 mg/dl (9-23); CHLORIDE 106 mmol/L (98-107); POTASSIUM 3.8 mmol/L (3.4-5.1); SGPT/ALT 21 U/L (5-49); TOTAL PROTEIN 6.3 gm/dL (6.0-8.0)
[2023-10-09 20:00] VITALS: BP 112/64
[2023-10-10 08:26] VITALS: BP 154/85
[2023-10-10] MEDS ORDERED: RISPERIDONE 0.25 MG TAB PO SCH (09:00)
[2023-10-10 20:00] VITALS: BP 125/61; BP 175/61
[2023-10-11 07:48] VITALS: BP 141/79
[2023-10-11] MEDS ORDERED: Albuterol Sulf/Ipratropium 3 ML VIAL NEB PRN (18:40)
[2023-10-11 19:35] LABS: BUN 15 mg/dl (9-23); CHLORIDE 106 mmol/L (98-107); POTASSIUM 4.3 mmol/L (3.4-5.1)
[2023-10-11 20:00] VITALS: BP 144/56
[2023-10-12 08:00] VITALS: BP 122/68
[2023-10-12] MEDS ORDERED: RISPERIDONE0.25 M2 PO (09:42)
[2023-10-12] MEDS ORDERED: CLONAZEPAM1 MG PO (09:42)
[2023-10-12] MEDS ORDERED: TRINTELLIX20 MG PO (09:42)
[2023-10-12 20:07] LABS: CLONAZEPAM (KLONOPIN),SERUM 12 ng/mL (20-70)
[2023-10-14] MEDS ORDERED: PREGABALIN100 MG PO (12:07)
[2023-10-14] MEDS ORDERED: AMLODIPINE BESYL5 MG PO (12:07)
[2023-10-14] MEDS ORDERED: OMEPRAZOLE MAGN20 MG PO (12:07)
[2023-10-14] MEDS ORDERED: METHOCARBAMOL500 M1 PO (12:07)
== END 2023-10-12 16:25 | disposition home or self-care (01) | DRG 751 ==
LOC: 3N 14:26
PROVIDERS: Nurse Practitioner; Student in an Organized Health Care Education/Training Program; ADMIT Psychiatry & Neurology Psychiatry; ATTEND Psychiatry & Neurology Psychiatry
PROC: GZHZZZZ Group Psychotherapy (ICD-10-PCS; principal; 2023-09-28)
PROC: GZ56ZZZ Individual Psychotherapy, Supportive (ICD-10-PCS; 2023-09-28)
DX: F33.9 Major depressive disorder, recurrent, unspecified (principal); E43 Unspecified severe protein-calorie malnutrition; F43.21 Adjustment disorder with depressed mood; F34.1 Dysthymic disorder; J44.9 Chronic obstructive pulmonary disease, unspecified; E78.5 Hyperlipidemia, unspecified; E11.65 Type 2 diabetes mellitus with hyperglycemia; D72.819 Decreased white blood cell count, unspecified; K57.30 Diverticulosis of large intestine without perforation or abscess without bleeding; F41.1 Generalized anxiety disorder; I10 Essential (primary) hypertension; G50.0 Trigeminal neuralgia; Z79.899 Other long term (current) drug therapy; Z79.01 Long term (current) use of anticoagulants; Z79.2 Long term (current) use of antibiotics; Z86.718 Personal history of other venous thrombosis and embolism; Z90.49 Acquired absence of other specified parts of digestive tract; Z82.49 Family history of ischemic heart disease and other diseases of the circulatory system; Z80.1 Family history of malignant neoplasm of trachea, bronchus and lung; Z83.3 Family history of diabetes mellitus; Z68.21 Body mass index [BMI] 21.0-21.9, adult